=== PATIENT | male | born 1995 | race Asian ===

== ENCOUNTER 2021-08-08 14:16 | Outpatient (CLI) | payer BC | END 2021-08-08 14:17 | disposition home or self-care (01) | LOC: RAD 14:16 | PROVIDERS: ATTEND Internal Medicine Critical Care Medicine | DX: R06.00 Dyspnea, unspecified (principal) | CPT/HCPCS: 71046 ==

== ENCOUNTER 2022-01-20 10:16 | Outpatient (CLI) | payer BC | END 2022-01-20 10:17 | disposition home or self-care (01) | LOC: BICRAD 10:16 | PROVIDERS: ATTEND Family Medicine | DX: R76.12 Nonspecific reaction to cell mediated immunity measurement of gamma interferon antigen response without active tuberculosis (principal) | CPT/HCPCS: 71046 ==